=== PATIENT | female | born 1980 | race Caucasian/White ===

== ENCOUNTER 2020-11-28 12:22 | Outpatient (CLI) | payer BC ==
[2020-11-28 14:17] LABS: #Eosinphils 0.1 10x3/uL (0.0-0.5); #Monocytes 0.4 10x3/uL (0.0-1.1); #Neutrophils 3.8 10x3/uL (1.5-8.4); %Basophils 0.6 % (0.0-2.0); %Eosinophils 0.7 % (0.0-6.0); %Lymphocytes 38.1 % (18.0-47.0); %Monocytes 5.4 % (0.0-10.0); %Neutrophils 54.8 % (40.0-75.0); Hemoglobin 13.4 g/dL (12.0-15.5); Mean Corpuscular HGB CONC 33.5 g/dL (32.0-36.0); Mean Corpuscular Hemoglobin 30.9 pg (27.0-33.0); Mean Corpuscular Volume 92.4 fl (81.6-98.3); Mean Platelet Volume 9.4 fl (7.4-10.4); Platelet Count 240 10x3/uL (150-450); RBC Distribution Width 11.8 % (11.5-14.5); Red Blood Cell (RBC) Count 4.33 10x6/uL (3.90-5.03)
[2020-11-28 14:36] LABS: Anion Gap 16 mmol/L (10-20); BUN (Urea Nitrogen) 11 mg/dL (7.0-18.7); Calc. Creatinine Clearance 0 mL/min (70-130); Calcium 10.2 mg/dL (7.8-10.44); Carbon Dioxide 24 mmol/L (22-29); Chloride 103 mmol/L (98-107); Glucose 86 mg/dL (70-105); Potassium 4.4 mmol/L (3.5-5.1); Sodium 139 mmol/L (136-145)
[2020-11-28 23:41] LABS: SARS-CoV-2 PCR by NAA Not Detected (NotDetected)
== END 2020-11-28 12:23 | disposition home or self-care (01) ==
LOC: LABBT 12:22
PROVIDERS: ATTEND Specialist
DX: Z01.812 Encounter for preprocedural laboratory examination (principal); C50.911 Malignant neoplasm of unspecified site of right female breast; Z20.822 Contact with and (suspected) exposure to COVID-19
CPT/HCPCS: 80048; 85025; U0003; U0005

== ENCOUNTER 2020-12-03 07:28 | Day surgery (SDC) | payer BC ==
[2020-12-02 12:52] VITALS: BMI 29.4
[2020-12-03] MEDS ORDERED: Isosulfan Blue 50 MG/5 ML VIAL ONE (07:59)
[2020-12-03] MEDS ORDERED: Bupivacaine 0.25% HCL 30 ML VIAL ONE (08:01)
[2020-12-03] MEDS ORDERED: Lidocaine 1% w/Epinephrine 1:100K 20 ML VIAL ONE (08:01)
[2020-12-03] MEDS ORDERED: Ketorolac Tromethamine 30 MG/ML VIAL ONE (09:11)
[2020-12-03] MEDS ORDERED: Fentanyl 100 MCG/2 ML VIAL ONE (09:11)
[2020-12-03] MEDS ORDERED: Midazolam HCl 2 mg/2 ml Vial ONE (09:12)
[2020-12-03] MEDS ORDERED: Acetaminophen 500 MG TAB ONE (09:12)
[2020-12-03] MEDS ORDERED: Dexamethasone 20 MG/5 ML VIAL ONE (11:09)
[2020-12-03] MEDS ORDERED: PROPOFOL 200 MG/20 ML VIAL ONE (11:09)
[2020-12-03] MEDS ORDERED: ePHEDrine 50 MG/ML VIAL ONE (11:09)
[2020-12-03] MEDS ORDERED: Ondansetron PF 4 MG/2 ML Vial ONE (11:09)
[2020-12-03] MEDS ORDERED: Lidocaine 1% PF 5 ML VIAL ONE (11:09)
== END 2020-12-03 14:13 | disposition home or self-care (01) ==
LOC: SDC 07:28
PROVIDERS: ATTEND Specialist
PROC: 07B50ZX Excision of Right Axillary Lymphatic, Open Approach, Diagnostic (ICD-10-PCS; principal; 2020-12-03)
PROC: 0HBT0ZZ Excision of Right Breast, Open Approach (ICD-10-PCS; principal; 2020-12-03)
DX: C50.811 Malignant neoplasm of overlapping sites of right female breast (principal); E78.5 Hyperlipidemia, unspecified; Z17.0 Estrogen receptor positive status [ER+]; Z79.899 Other long term (current) drug therapy; Z91.018 Allergy to other foods; Z88.1 Allergy status to other antibiotic agents
CPT/HCPCS: 76098; 78195; 88307; 88342; A9541; J0690; J1100; J1885; J2250; J2405; J2704; J3010; J3490; Q9968; S0020